=== PATIENT | female | born 1970 | race Caucasian/White ===

== ENCOUNTER 2016-11-07 18:57 | Inpatient (IN) | payer OTHER, MEDICAID ==
[~2016-11-07] VITALS: Ht 160 cm; Wt 54.7 kg
[2016-11-07 19:18] VITALS: BP 76/52; PULSE 66; RESP 15; O2SAT 60
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
[2016-11-07] MEDS ORDERED: 0.9% Sodium Chloride 1,000 ML IV ONE ×2 (19:28→22:00)
[2016-11-07] MEDS ORDERED: Piperacillin-Tazo 3.375 Gm Inj 3.375 GM in Dextrose 5% Minibag Plus 50 ML IV ONE (19:40)
--- NOTE | 2016-11-07 20:13 | DRSVH ---
PROCEDURE: X-RAY CHEST ONE VIEW, PORTABLE ([id number]) INDICATIONS: fever, hypotension TECHNIQUE: One view of the chest was acquired. COMPARISON: None. FINDINGS: Surgical changes and devices: Low anterior cervical fusion has been performed. Lungs and pleura: No pneumothorax. Moderate patchy airspace opacity at the right lung base. Small ri ght pleural effusion. Mediastinum: Mediastinal contours appear normal. Heart size is normal. Bones and chest wall: No suspicious bony lesions. Overlying soft tissues appear unremarkable. IMPRESSION: Right lung base pneumonia with small parapneumonic effusion. Follow up plain films of the chest are recommended to ensure resolution, and to exclude underlying or central malignancy. Dictated by: William Omer M.D. on 11/07/2016 at 20:11 Approved by: William Omer M.D. on 11/07/2016 at 20:12
[2016-11-07 21:05] LABS: BASOPHILS % (AUTO) 0.3 % (0-3); EOSINOPHILS % (AUTO) 0.5 % (0-5); MONOCYTES % (AUTO) 8.4 % (4-12); Mean Corpuscular Hemoglobin 28.5 pg (27.0-35.0); Mean Corpuscular Volume 85.6 fL (81-100); NEUTROPHILS % (AUTO) 49.2 % (40-74); Platelet Count 119 bil/L (150-400)
[2016-11-07 21:27] LABS: TROPONIN T 0.01 ug/L (0.0-0.011)
[2016-11-07 21:37] LABS: ERYTHROCYTE SEDIMENTATION RATE 34 mm/hr (0-32)
[2016-11-07 22:20] LABS: COLOR,URINE YELLOW (YELLOW)
[2016-11-07 22:21] LABS: APPEARANCE,URINE CLEAR (CLEAR,HAZY); ICTOTEST,URINE POSITIVE (Negative); OCCULT BLOOD,URINE NEGATIVE (NEGATIVE); PH,URINE 5.5 (5.0-8.0); UROBILINOGEN,URINE NORMAL (NORMAL); YEAST,URINE MANY (NONE SEEN)
[2016-11-07] MEDS ORDERED: Polyethylene Glycol (PEG) 17 Gm Powder PO PRN (23:55)
[2016-11-07] MEDS ORDERED: Alum-Mag Hydrox-Simeth 30 mL Suspension PO PRN (23:55)
[2016-11-08] VITALS (21 sets, daily range): BP systolic 68–158; BP diastolic 32–112; PULSE 66–92; RESP 14–26; O2SAT 92–96
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
[2016-11-08] MEDS ORDERED: HYDROmorphone 1 mg/mL Inj IVPUSH ONE (01:00)
[2016-11-08] MEDS ORDERED: 0.9% Sodium Chloride 1,000 ML IV ONE (01:10)
[2016-11-08] MEDS: Vancomycin Dose per Pharmacist XX SCH ×2 (01:10→08:30)
[2016-11-08] MEDS ORDERED: Vancomycin Inj 1,000 MG in IV Premix 1 EACH IV ONE (01:15)
[2016-11-08] MEDS: 0.9% Sodium Chloride 1,000 ML IV SCH ×2 (01:30→16:07)
[2016-11-08] MEDS ORDERED: BACL20TA PO ×3 (01:43→05:44)
[2016-11-08] MEDS ORDERED: OXYB10TA PO (01:43)
[2016-11-08] MEDS ORDERED: FLUO10CA20 PO (01:43)
[2016-11-08] MEDS ORDERED: ASPI325T32 PO ×2 (01:43→05:44)
[2016-11-08] MEDS ORDERED: DIAZ10TA3 PO ×2 (01:43→05:44)
[2016-11-08] MEDS ORDERED: HYDR-3740 PO ×2 (01:43→05:44)
[2016-11-08] MEDS ORDERED: SIMV40TA5 PO (01:43)
[2016-11-08] MEDS ORDERED: MIDO5TAB PO ×2 (01:43→05:44)
[2016-11-08] MEDS ORDERED: BUPR150T12 PO ×2 (01:43→05:44)
[2016-11-08] MEDS ORDERED: AMT50T PO ×2 (01:43→05:44)
[2016-11-08] MEDS ORDERED: Tolterodine ER 2 mg ER24 Capsule PO ONE (01:55)
[2016-11-08] MEDS: Heparin 5,000 Unit/mL Inj SUBQ SCH ×4 (02:30→23:03)
--- NOTE | 2016-11-08 03:59 | PCM.CONPHA ---
Subjective Date of Service: November 08, 2016 Requesting Provider: PAULO OAKLEY DO Fevers, malaise Reason for Pharmacy Consult: Vancomycin Dosing Objective Vital Signs Date Time Temp Pulse Resp B/P Pulse Ox O2 Delivery O2 Flow Rate FiO2 11/08/16 01:52 67 11/08/16 01:17 37.1 82 16 90/48 96 Nasal Cannula 4 11/08/16 00:48 36.7 66 16 74/48 94 Nasal Cannula 4.00 11/07/16 19:18 37.0 66 15 76/52 60 Room Air Intake and Output 11/06/16 11/07/16 11/08/16 00:00 00:00 00:00 Intake Total 2000 ml Balance 2000 ml Weight (Kilograms): 51.300 Height (Feet): 5 Height (Inches): 3.00 Test 11/07/16 20:55 11/07/16 21:38 White Blood Count 4.0th/mm3 (3.8-10.1) Red Blood Count 3.89mil/mm3 (3.90-5.20) Hemoglobin 11.1g/dL (12.0-15.6) Hematocrit 33.3% (35.0-46.0) Mean Corpuscular Volume 85.6fL (81-100) Mean Corpuscular Hemoglobin 28.5pg (27.0-35.0) Mean Corpuscular Hemoglobin Concent 33.3% (32.0-37.0) Red Cell Distribution Width 16.0% (12.3-15.4) Platelet Count 119bil/L (150-400) Neutrophils (%) (Auto) 49.2% (40-74) Lymphocytes (%) (Auto) 41.3% (14-46) Monocytes (%) (Auto) 8.4% (4-12) Eosinophils (%) (Auto) 0.5% (0-5) Basophils (%) (Auto) 0.3% (0-3) Erythrocyte Sedimentation Rate 34mm/hr (0-32) Sodium Level 124mEq/L (134-144) Potassium Level 4.4mEq/L (3.5-5.2) Chloride Level 89mEq/L (97-108) Carbon Dioxide Level 20mmol/L (18-29) Blood Urea Nitrogen 11mg/dL (6-24) Creatinine 0.73mg/dL (0.57-1.00) Estimat Glomerular Filtration Rate 122mL/min (>59) Glucose Level 89mg/dL (60-99) Lactic Acid Level 0.8mmol/L (0.4-2.0) Calcium Level 8.9mg/dL (8.5-10.1) Total Bilirubin 0.2mg/dL (0.0-1.2) Aspartate Amino Transf (AST/SGOT) 28U/L (0-50) Alanine Aminotransferase (ALT/SGPT) 17U/L (0-32) Alkaline Phosphatase 83U/L (25-150) Troponin T 0.010ug/L (0.0-0.011) Pro-B-Type Natriuretic Peptide 168.0pg/mL (0-249) Total Protein 6.6g/dL (6.4-8.4) Albumin 3.3g/dL (3.4-5.0) Lipase 19U/L (13-60) Procalcitonin 0.06ng/mL (0.00-0.08) Urine Color Yellow (YELLOW) Urine Appearance Clear (CLEAR,HAZY) Urine pH 5.5 (5.0-8.0) Urine Specific [place] 1.018 (1.003-1.035) Urine Protein Negativemg/dL (NEG,TRACE) Urine Glucose (UA) Negativemg/dL (NEGATIVE) Urine Ketones Negativemg/dL (NEGATIVE) Urine Occult Blood Negative (NEGATIVE) Urine Nitrite Negative (NEGATIVE) Urine Bilirubin Small (NEGATIVE) Urine Ictotest Positive (Negative) Urine Urobilinogen Normalmg/dL (NORMAL) Urine Leukocyte Esterase Large (NEGATIVE) Urine RBC 0-2/hpf (0-2) Urine WBC >50/hpf (0-5) Urine Epithelial Cells Few/hpf (NONE-MOD) Urine Crystals None seen (NONE SEEN) Urine Bacteria Few/hpf (NONE-FEW) Urine Hyaline Casts None/lpf (NONE) Urine Granular Casts None seen (NONE SEEN) Urine Waxy Casts None seen (NONE SEEN) Urine Red Blood Cell Casts None seen (NONE SEEN) Urine White Blood Cell Casts None seen (NONE SEEN) Urine Mucus None seen (None Seen) Urine Trichomonas None seen (NONE SEEN) Urine Yeast Many (NONE SEEN) Urine Culture Reflexed Indicated Assessment/Plan Assessment/Plan A: * Vancomycin dosing by pharmacy for 46 y/o woman with pneumonia * She is also being started on Zosyn * Estimated CrCl for this patient is about 77 mL/min (Cockcroft & Gault) * Estimated vancomycin half-life is 10 hours and estimated Vd is 36 liters P: * Give one vancomycin 1000 mg IV loading dose * Continue with vancomycin 750 mg IV every 12 hours * Target a vancomycin trough range of 15 - 20 mcg/mL * Drawing a trough level prior to the fourth dose Thank you. Pharmacy will continue to follow this patient. Giselle Shahid November 08, 2016 03:59
[2016-11-08] MEDS ORDERED: OXYB5TAB10 PO (05:44)
[2016-11-08] MEDS ORDERED: FLUO10TA PO (05:44)
[2016-11-08] MEDS ORDERED: SIMV20TA4 PO (05:44)
[2016-11-08] MEDS ORDERED: DOCU250C2 PO (05:44)
--- NOTE | 2016-11-08 05:47 | NUR ---
ADMIT Patient transfer from ER and was hypotensive with SBP 60-70s, Gave 500ml bolus NS, then repeat of 250ml NS. BP increased to 150s and patient reported pain 10/10 and was worried that her BP would continue to rise stating, "this is how I had a stroke." Dilaudid given with quick resolution of pain, however, BP returned to low 70s. Midodrine ordered and given, providing stabilization of BP in 90s which is patient norm. Patient began asking for pain medication and valium. Blood pressure at this time dipped back into the 60s, patient informed we would have to wait on pain medications until we can get her BP back into 90s. MD contacted and made aware of changes. Midodrine ordered for morning dose. Noted on skin check that patient had small open area on coccyx and redness to sacrum area. Q2h turns, heals and elbows floated on pillows. Care is ongoing.
--- NOTE | 2016-11-08 08:24 | DRSVH ---
PROCEDURE: X-RAY CHEST ONE VIEW, PORTABLE ([id number]) INDICATIONS: dyspnea TECHNIQUE: One view of the chest was acquired. COMPARISON: [facility], CT, CT ABD PELVIS W CON, 11/07/2016, 22:48. [facility], CR, XR CHEST 1VW (PORTABLE), 11/07/2016, 19:40. FINDINGS: Surgical changes and devices: Lower cervical spine fixation hardware. Lungs and pleura: Air space opacity as well as right lung base and small right pleural effusion redem onstrated. Left lung is clear. Mediastinum: Mediastinal contours appear normal. Heart size is normal. Bones and chest wall: No suspicious bony lesions. Overlying soft tissues appear unremarkable. IMPRESSION: Right basilar consolidation and trace effusion not significantly changed. Dictated by: Los Smith RRA Interpreted: Jil Gomes MD on 11/08/2016 at 8:21 Transcribed by: WILLIE on 11/08/2016 at 8:24 Approved by: Jil Gomes M.D. on 11/08/2016 at 10:30
[2016-11-08] MEDS ORDERED: buPROPion XL 150 mg ER24 Tablet PO SCH ×2 (08:30→20:30)
[2016-11-08] MEDS: HYDROcodone-APAP 10-325 mg PO PRN ×2 (08:33→16:03)
[2016-11-08 08:55] LABS: OSMOLALITY, URINE 282 mOs/kH2O (250-1200)
--- NOTE | 2016-11-08 08:56 | DRSVH ---
PROCEDURE: CT ABDOMEN AND PELVIS WITH CONTRAST ([id number]) INDICATIONS: 46 year-old woman with abdominal pain and pneumonia. TECHNIQUE: After the administration of intravenous contrast, 5 mm thick sections acquired from the diaphragm to the symphysis. 5 mm coronal and sagittal reformats were acquired. For radiation dose reduction, the following was used: automated exposure control, adjustment of mA and/or kV according to patient siz e. COMPARISON: None. FINDINGS: Image quality: Excellent. ABDOMEN: Lung bases: There is right basilar consolidation and atelectasis. Small right pleural effusion. Hear t size is normal. Solid organs: Liver is enlarged measuring 19.5 cm. The spleen are normal in size and enhancement. G allbladder is normal. Biliary system is non dilated. Pancreas enhances normally. No adrenal nodule s. Kidneys demonstrate normal size and enhancement, without hydronephrosis. Peritoneum and bowel: Bowel loops demonstrate normal wall thickness and caliber. There is a large a mount of stool in colon. No free fluid or air. Nodes and vessels: No retroperitoneal or mesenteric adenopathy by size criteria. Aorta and inferior vena cava are normal in size. Miscellaneous: No ventral hernias. PELVIS: Genitourinary: Bladder wall thickness is normal. Miscellaneous: No inguinal hernias or adenopathy. There is stranding in the right perianal region a nd buttock. Bones: No suspicious bony lesions. No vertebral body compression fractures. IMPRESSION: 1. Right basilar consolidation consistent with pneumonia. 2. Small right pleural effusion and bibasilar atelectasis. 3. Mild hepatomegaly. 4. Mild concentric thickening of bladder. Bladder is, however, partially contracted. Recommend clinic al correlation for cystitis. 5. Soft tissue stranding in the right perianal region and buttock. No significant discrepancy with the maintenance technician 2nd shift radiology preliminary report. Dictated by: Shanelle Gonzáles M.D. on 11/08/2016 at 8:50 Transcribed by: BRITTNEE on 11/08/2016 at 8:55 Approved by: Shanelle Gonzáles M.D. on 11/08/2016 at 12:08
[2016-11-08] MEDS: Piperacillin-Tazo 3.375 Gm Inj 3.375 GM in Dextrose 5% Minibag Plus 50 ML IV SCH ×2 (09:05→20:29)
[2016-11-08 10:32] LABS: BASOPHILS % (AUTO) 0 % (0-3); EOSINOPHILS % (AUTO) 0 % (0-5); MONOCYTES % (AUTO) 8.9 % (4-12); Mean Corpuscular Volume 86.9 fL (81-100); NEUTROPHILS % (AUTO) 74.9 % (40-74); Platelet Count 89 bil/L (150-400)
--- NOTE | 2016-11-08 11:15 | DRSVH ---
PROCEDURE: US CHEST/PLEURAL SONOGRAM INDICATIONS: pleural effusion COMPARISON: [facility], CT, CT ABD PELVIS W CON, 11/07/2016, 22:48. FINDINGS: Trace posterior, non-accessible right pleural effusion is present and there is moderate jose antonio ng consolidation noted. IMPRESSION: Trace right pleural effusion posteriorly which is not accessible for thoracentesis. Lung consolidation. Dictated by: [place] ALEX Interpreted: Jil Gomes MD on 11/08/2016 at 11:13 Transcribed by: WILLIE on 11/08/2016 at 11:15 Approved by: Jil Gomes M.D. on 11/09/2016 at 16:02
[2016-11-08] MEDS ORDERED: DOCU-41 PO (14:29)
[2016-11-08] MEDS ORDERED: SENN-133 PO (14:29)
--- NOTE | 2016-11-08 14:46 | NUR ---
Med Rec Pt unable to recall her medications. Obtained med lists from pt's pharmacy - [facility] in [place] and pt's physician, Mukesh Mccauley MD. Notified Hospitalist - R2 that Med Rec has been completed.
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
--- NOTE | 2016-11-08 16:03 | NUR ---
Wound Care Wound orders received, patient seen at bedside. 46 yo female with quadriplegia for greater than 25 years, admitted to [facility] for fever and constipation. Skin inspection reveals her left buttock is blanchable and red as is the spine of her sacrum, she currently has no pressure related skin issues. Patient has a tilt in space [employer] power chair and lives in [place]. No wound care issues at this time.
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
[2016-11-08] MEDS ORDERED: Vancomycin Inj 750 MG in 0.9% Sodium Chloride 250 ML IV SCH (17:00)
[2016-11-08] MEDS ORDERED: 0.9% Sodium Chloride 250 ML IV ONE ×3 (17:45→22:35)
--- NOTE | 2016-11-08 17:50 | NUR ---
Midodrine Withheld Pt's Midodrine at 1200 due to BP being Hypertensive. Pt's BP started trending down and around 1500 administered her noon dose after talking to MD about her most recent BP's. Pt's BP still low at this time, just paged and received orders to administer a 250 mls NS bolus. Will continue to monitor.
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
[2016-11-08] MEDS: buPROPion SR 150 mg ER12 Tablet PO SCH (18:03)
[2016-11-09] VITALS (10 sets, daily range): BP systolic 82–128; BP diastolic 40–73; PULSE 66–84; RESP 13–24; O2SAT 90–97
--- NOTE | 2016-11-09 01:49 | NUR ---
Hypotension/O2 Pt BP 70s/40s at start of shift, pt very dizzy when attempting to sit up to eat. Symptoms better when pt lying down flat. MD notified and ordered one time dose of 5mg midodrine. Pt's SBP up to 80s for a very short time but then back to 70s as before. O2 needs also up while pt slept. O2 turned up to 6L NC and later switched to oxymask as pt was observed to mouth breath while asleep. Sats now maintaining mid 90s on 5-6L oxymask, monitored continuously. Night resident notified when BP persisted in 70s/40s, NS 250 bolus ordered and both residents came to assess pt, second 250NS bolus ordered and one time 10mg dose of midodrine ordered as well. Pt placed in IMCU status. Tele SR 80s w/ PVCs, sputum sample sent. BP now 100s/60s Ongoing care. Addendum: 11/09/16 at 0643 by AUGUSTO DUQUE RN SBP maintaining in 90s
[2016-11-09 03:04] LABS: BASOPHILS % (AUTO) 0.3 % (0-3); EOSINOPHILS % (AUTO) 0.3 % (0-5); MONOCYTES % (AUTO) 7.3 % (4-12); Mean Corpuscular Hemoglobin 27.9 pg (27.0-35.0); Mean Corpuscular Volume 86.9 fL (81-100); NEUTROPHILS % (AUTO) 59.8 % (40-74); Platelet Count 110 bil/L (150-400)
[2016-11-09] MEDS: Ondansetron 2 mg/mL 2 mL Inj IVPUSH PRN ×2 (06:10→20:35)
[2016-11-09] MEDS: HYDROcodone-APAP 10-325 mg PO PRN ×3 (06:52→21:01)
--- NOTE | 2016-11-09 07:53 | PROG NOTE ---
[address] [address] PROGRESS NOTE PATIENT: JORDY IBRAHIM : 1970 MR#: [id number] ADMIT: 11/07/2016 JOB ID: [id number] DATE: 11/09/2016 REASON FOR FOLLOWUP: Adenoviral pneumonia with possible attendant bacterial or fungal infection. INTERVAL HISTORY: Recall this is a 46-year-old quadriplegic who was admitted on this occasion with increasing shortness of breath, respiratory crackles, and fever. She tells me today that both of her young caregivers, who are in their 20s, have had a very significant respiratory tract illness which preceded hers. She believes, as to why, that she acquired her current infection from them. Today she continues to have a scratchy throat, but no additional fevers or chills. She has thick respiratory secretions which she cannot bring up due to her quadriplegic state. She has some nausea, but no vomiting. PHYSICAL EXAMINATION: Reveals an afebrile woman temp 37.8, pulse 84, respiratory rate 20, blood pressure 100/60. She is saturating well, but having to use face mask oxygen. Mental status completely clear. Eyes without conjunctivitis. Mild pharyngeal erythema without exudate. Lung with some scattered upper airway sounds bilaterally. Abdomen is soft and nontender of course as she has no sensation below her neck. No new skin rashes noted. Suprapubic catheter appears uninfected. LABORATORIES: Include a white count of 3700 today, 110,000 platelets. Creatinine 0.28. LFTs are normal. Procalcitonin zero x2. Urinalysis had greater than 50 white cells, but the culture is negative at 36 hours. Respiratory viral PCR positive for adenovirus. Blood cultures negative. MRSA virus negative. Chest x-ray showed right-sided infiltrate. This was confirmed by a chest ultrasound. IMPRESSION: This quadriplegic patient admitted with fever and shortness of breath. She clearly has had adenoviral pneumonia, and I suspect that is all she has, there had been concerns because she had pyuria with yeast seen on the stain of urine, but cultures of the urine so far negative, and I have asked the lab to hold her urine for 72 hours to make sure there is no yeast growing. This may turn operator to be a red spears in terms of seeing the yeast on urinalysis. Whether or not she has any bacterial superinfection is unclear, but I doubt it. Procalcitonins x2 are zero. The patient looks nontoxic and has a normal white blood count. RECOMMENDATIONS: 1. Will go ahead and continue Zosyn and fluconazole until tomorrow. 2. I have asked the lab to hold her urine culture an additional day. 3. If we see no evidence of fungal urinary tract infection or bacterial superinfection on top of the adenoviral pneumonia tomorrow, will probably go ahead and discontinue all antibiotics at that time. MTDD
[2016-11-09] MEDS: Polyethylene Glycol (PEG) 17 Gm Powder PO SCH (08:30)
[2016-11-09] MEDS: Heparin 5,000 Unit/mL Inj SUBQ SCH ×2 (08:30→17:21)
[2016-11-09] MEDS: Piperacillin-Tazo 3.375 Gm Inj 3.375 GM in Dextrose 5% Minibag Plus 50 ML IV SCH ×2 (09:03→20:39)
[2016-11-09] MEDS: buPROPion SR 150 mg ER12 Tablet PO SCH ×2 (09:03→17:20)
[2016-11-09] MEDS: 0.9% Sodium Chloride 1,000 ML IV SCH (10:50)
--- NOTE | 2016-11-09 15:18 | NUR ---
Hypotension Pt's BP has been in the 80's-90's/40's-50's for most of the day. MD's aware and after discussion plan is to keep giving the Mididrone and to page MD if BP's systolic drops below 80's. Q1 hour BP checks.
[2016-11-09] MEDS ORDERED: Vancomycin Serum Trough XX ONE (16:30)
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
[2016-11-10] VITALS (15 sets, daily range): BP systolic 73–115; BP diastolic 37–59; PULSE 62–69; RESP 14–21; O2SAT 88–96
[2016-11-10] MEDS: Heparin 5,000 Unit/mL Inj SUBQ SCH ×4 (00:28→23:51)
[2016-11-10 03:25] LABS: BASOPHILS % (AUTO) 0.2 % (0-3); EOSINOPHILS % (AUTO) 0 % (0-5); MONOCYTES % (AUTO) 7.9 % (4-12); Mean Corpuscular Hemoglobin 28.1 pg (27.0-35.0); Mean Corpuscular Volume 85.7 fL (81-100); NEUTROPHILS % (AUTO) 65.7 % (40-74); Platelet Count 124 bil/L (150-400)
--- NOTE | 2016-11-10 04:28 | NUR ---
P: 02 desaturation I: increase 5L oxymask, add 6L NC, awaken pt to use flutter valve and incentive spirometer, repositioning E: A/O. Moves BUEs. Flaccid BLEs. Numb from chest down to feet. Eating dinner at 2200. Feeds self. States has been having food "get stuck" and hurts chest. Per pt this has been happening for past year. Informed Dr. Rucker. c/o generalize aching, spasms, 11/26. [place] along w/ HS bacoflen, elavil, and plus more HS meds. 02 saturation decreasing down to 85% on 5L oxymask while sleeping. Reposition and waking pt to use flutter valve, incentive spirometer, and take in fluids. Helpful then pt back to sleep w/ 02 saturations trending down to mid 80s again. Increasing oxymask to 15L, sats in the high 80s. Adding on 6L NC to keep sats > 92%. Currently 2L oxymask and 6L NC = 93% (asleep). Tele SR. SBP 80-low 100s, DBP 40-50s. Call MD if SBP < 70 per shift report. SP cath draining leatha cloudy urine.
[2016-11-10] MEDS: buPROPion SR 150 mg ER12 Tablet PO SCH ×2 (08:00→16:46)
[2016-11-10] MEDS: Polyethylene Glycol (PEG) 17 Gm Powder PO SCH (08:30)
--- NOTE | 2016-11-10 08:51 | PROG NOTE ---
[address] [address] PROGRESS NOTE PATIENT: JORDY IBRAHIM : 1970 MR#: [id number] ADMIT: 11/07/2016 JOB ID: [id number] DATE: 11/10/2016 INFECTIOUS DISEASE FOLLOW UP NOTE: REASON FOR FOLLOWUP: Adenoviral pneumonia with Amalia urinary tract infection in a quadriplegic. INTERVAL HISTORY: Overnight, the patient said she is more short of breath than she has been. She reports that she feels like she cannot get air into the bottom of her lungs, especially on the right side. She also notes that she cannot cough anything up and is trying to do her so called "self Heimlich maneuver" to get some sputum up but that has not been successful. She denies fever but clearly is cold this morning with a lot of covers in place trying to keep warm. No GI symptoms and no other new symptoms to report. PHYSICAL EXAMINATION: Reveals a woman who is heavily laden with blankets and looks a bit chilled. Temperature 36.4. She has been afebrile since the for two days. Pulse 64, respiratory rate 14, blood pressure 85/50 which is normal for her by her report. She is saturating well on just 2 L by Oxy Mask, which is less than was recently as last night. She does not appear to be in extreme discomfort as she is fully conversational and does not appear dyspneic. Oral cavity negative. Lungs with reasonable air flow bilaterally, a few crackles or rhonchi at the right base. The abdomen without any change. Soft and without apparent mass or abnormalities. She does have a suprapubic tube in place. No skin rash. Remainder of the examination is unchanged. LABORATORIES: Include a white count which is consistently right around 4000 and is today 4400. Platelets 124. Normal differential on the white count. Creatinine less than 0.3. LFTs normal. Procalcitonin now less than or equal to 0.06 three times including this morning. Urinalysis had greater than 50 white cells, and the culture of that urine did finally grow on the third day Amalia albicans. Remainder of her cultures are negative and other micro studies, urine Legionella and pneumococcal antigens are negative. Blood cultures are negative. Flu screen negative. MRSA screen negative and the respiratory viral multiplex PCR was positive for adenovirus. IMAGING: Ultrasound of the chest two days ago showed trace right pleural effusion. The chest x-ray, also done two days ago, showed right basilar consolidation with trace pleural effusion. IMPRESSION: This patient was admitted primarily for fever and shortness of breath. This is likely all secondary to adenoviral pneumonia. The patient has no leukocytosis, no left shift and three procalcitonins which are functionally 0. All of this argues strongly against a bacterial etiology as does the negative cultures and urine antigens. Whether or not she has a fungal urinary tract infection is difficult to tell. We do have pyuria and some yeast in her urine in a patient who cannot and will not have symptoms because of her quadriplegia. Amalia colonization of suprapubic or chronic indwelling [place] is very common, but in this case, it may be worth a short course of therapy. RECOMMENDATIONS: 1. Will go ahead and discontinue the Zosyn as we have no evidence of bacterial pneumonia. 2. I would continue fluconazole 200 mg a day for about 10 days. 3. ID will go ahead and sign off at this time. Please do not hesitate to call if you have additional questions or issues regarding this or any other patient.
[2016-11-10] MEDS: HYDROcodone-APAP 10-325 mg PO PRN ×2 (10:11→20:57)
[2016-11-10] MEDS ORDERED: Potassium Chloride 20 mEq SR Tablet PO ONE (11:25)
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
--- NOTE | 2016-11-10 13:52 | DRSVH ---
PROCEDURE: X-RAY CHEST ONE VIEW, PORTABLE ([id number]) INDICATIONS: PNEUMONIA TECHNIQUE: One view of the chest was acquired. COMPARISON: [facility], CT, CT ABD PELVIS W CON, 11/07/2016, 22:48. [facility], CR, XR CHEST 1VW (PORTABLE), 11/07/2016, 19:40. [facility], US, US CHEST PLEURAL, 10/18, 8:56. [facility], CR, XR CHEST 1VW (PORTABLE), 11/08/2016, 4:13. FINDINGS: Surgical changes and devices: Lower cervical spine fixation hardware.. Lungs and pleura: Small right basal pleural effusion and persistent consolidation is present. Left l fareed is clear. No pneumothorax Mediastinum: Mediastinal contours appear normal. Heart size is normal. Bones and chest wall: No suspicious bony lesions. Overlying soft tissues appear unremarkable. IMPRESSION: 1. Persistent small effusion which appears to have slightly increased in size from prior examination and may be loculated. Developing empyema cannot be excluded. 2. 3. Persistent consolidation involving the right lower lobe. Dictated by: Los Smith RRA Interpreted: Jordana Conner MD on 11/10/2016 at 13:47 Transcribed by: SUGEY on 11/10/2016 at 13:52 Approved by: Jordana Conner MD, PhD on 11/10/2016 at 15:24
--- NOTE | 2016-11-10 14:34 | NUR ---
Evaluation completed. Please go to "Notes" then click on "Assessments and Notes" (bottom left corner of screen). Then select appropriate discipline tab on top of screen.
--- NOTE | 2016-11-10 16:48 | NUR ---
Bowel Regimen Offered to do bowel help and the pt stated she did not feel constipated, that she had not ate much and would like to wait till tomorrow to get back onto her routine of MON, WED, FRI. Asked her to inform me if she changed her mind
[2016-11-10] MEDS ORDERED: 0.9% Sodium Chloride 250 ML ONE ×2 (18:32→23:40)
[2016-11-10] MEDS ORDERED: 0.9% Sodium Chloride 250 ML IV ONE (23:40)
[2016-11-11] VITALS (10 sets, daily range): BP systolic 83–120; BP diastolic 55–78; PULSE 65–76; RESP 16–20; O2SAT 90–97
--- NOTE | 2016-11-11 03:44 | NUR ---
BP/LOC/O2 Pt BP around midnight trended down to high 60s-low 70s/low 40s. notified and ordered NS 250 bolus x3, SBP came up after this to 80s-90s and has maintained. When pt woken to be reassessed pt was difficult to wake, was able to follow commands, bilateral upper extremities moving equally, but had trouble answering questions about month and sometimes got year/city wrong. Pt able to be reoriented but would say odd things then get frustrated saying "I can't even speak." Both night residents danny and MD Rucker came into room to assess pt. No new orders given but home meds were reviewed. Pt O2 increased to 10 L oxymask d/t desats into mid 80s, sats maintained about 93% overnight on 10L. Pt also noted to have more accessory muscle use during this time. MD delgado. Addendum: 11/11/16 at 0603 by AUGUSTO DUQUE RN This morning, SBP 100s and O2 titrated back down to 4L oxymask, sats 94% while pt sleeps
[2016-11-11 04:20] LABS: Mean Corpuscular Volume 85.4 fL (81-100); Platelet Count 146 bil/L (150-400)
[2016-11-11 05:04] LABS: BASOPHILS % (AUTO) 0.8 % (0-3); EOSINOPHILS % (AUTO) 0.3 % (0-5); MONOCYTES % (AUTO) 8.1 % (4-12); NEUTROPHILS % (AUTO) 47.7 % (40-74)
[2016-11-11] MEDS: Polyethylene Glycol (PEG) 17 Gm Powder PO SCH (08:30)
[2016-11-11] MEDS: buPROPion SR 150 mg ER12 Tablet PO SCH ×2 (10:11→16:44)
[2016-11-11] MEDS: Heparin 5,000 Unit/mL Inj SUBQ SCH ×2 (10:13→16:43)
[2016-11-11] MEDS: HYDROcodone-APAP 10-325 mg PO PRN ×3 (10:33→21:23)
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
--- NOTE | 2016-11-11 13:46 | NUR ---
NUTRITION ASSESSMENT: ASSESS: Pt is a 46yo F admitted with pneumonia and sepsis. She was evaluated by ST yesterday and placed on dysphagia mechanical diet with thin liquids. Pts PO intake has not been recorded well over the last 4 days with only 2 meals recorded. PO is bites-50%. Pt has not had a BM since admit. PMHX: Quadriplegic, Blood clot, pneumothorax, CVA LABS: Reviewed. Bun 5, clinical project coordinator <.3, Glu 100, Ca 8.3, AST 84, ALT 56, Alb 2.6 MEDS: Reviewed. Colace, Zofran, senna GI: 0 BM SKIN: small open area on coccyx. No PU per WC CURRENT WTS: 57.3kg, BMI 22.4kg/m2 DIET: Dysphagia Mech, PO 50% EST. NEEDS: Quadriplegic -10% Kcals: 1290-1550kcal/day (25-30kcal/kg) Pro: 65-75g/day (1.2-1.5g/kg) NUTRITION DIAGNOSIS: 1.) Inadequate oral intake related to chew/swallow difficulty as evidence by pt reporting inability to tolerate general texture foods that she had been receiving. NUTRITION INTERVENTION: 1.) Continue diet per ST. Will monitor for tolerance 2.) Will add ensure on L and D trays to help supplement PO intake MONITOR / EVAL: PO, ST, diet tolerance, wt, GI, labs, POC, nutrition status. Will continue to monitor per moderate nutrition risk guidelines.
--- NOTE | 2016-11-11 13:50 | DRSVH ---
PROCEDURE: X-RAY BARIUM SWALLOW ESOPHAGUS ([id number]) INDICATIONS: sensation of getting food stuck COMPARISON: None. FINDINGS: Patient was able swallow barium without difficulty. No laryngeal penetration or tracheobr onchial aspiration. Course of the esophagus is tortuous and patulous and there is a standing column of barium noted throughout the examination. No significant stricture, ulcer, mass or diverticulum is present. A 13 mm barium tablet was given which didn't traverse the GE junction. The attending physi mauricio was personally present in the room during the examination. IMPRESSION: Severe esophageal dysmotility with patulous appearance of the esophagus and no significan t strictures seen. Differential considerations would include early achalasia, scleroderma, chagas di sease(if [place] [facility] [place] as well as other nonspecific esophageal motility disorders. Dictated by: Los ALEX Interpreted: Nick Au MD on 11/11/2016 at 13:44 Transcribed by: MARGARITA on 11/11/2016 at 13:49 Approved by: Nick Au M.D. on 11/11/2016 at 14:16
--- NOTE | 2016-11-11 14:16 | NUR ---
Speech Evaluation Pt swallow was evaluated with barium swallow today. Speech recommendation is to crush pt medications and give in applesauce. Pt is refusing medications in this way as she states "they make me gag". A consensus was reached with the agreement to cut medications into quarters and give with applesauce. Pt's diet was also downgraded to full liquid with some "naturally" pureed foods ok such as mashed potatoes with gravy, applesauce, pudding and yogurts. Pt states that she is agreeable to these dietary changes.
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
[2016-11-11] MEDS: Pantoprazole 4 mg/mL 10 mL Inj IVPUSH SCH (16:43)
--- NOTE | 2016-11-11 17:17 | NUR ---
Social Work: Continued Discharge Planning D: Pt discussed in am rounds. Pt is not medically stable for discharge at this time and was found to be delirious overnight. No Anticipated discharge timeframe provided. METAL LATHER attempted to contact pt's NOK to discuss discharge plan and assess for unmet needs. METAL LATHER left message for pt's NOK requesting return phone call to discuss pt's care at home. A: Pt who is a quadriplegic and w/c bound at baseline. P: Anticipate pt to discharge back home with her daughters; METAL LATHER to continue to attempt contact with pt's daughters to confirm discharge plan. CARLOS Bañuelos
[2016-11-11] MEDS: Ondansetron 2 mg/mL 2 mL Inj IVPUSH PRN (20:51)
[2016-11-12] VITALS (7 sets, daily range): BP systolic 94–113; BP diastolic 48–91; PULSE 64–75; RESP 16–22; O2SAT 88–95
[2016-11-12] MEDS: Heparin 5,000 Unit/mL Inj SUBQ SCH ×3 (00:36→18:01)
--- NOTE | 2016-11-12 02:15 | NUR ---
O2 / DESAT Patient tolerating 1.5LPM via NC after clearing thick secretions (swallowed). Spo2 87% at HS. O2 increased to 4LPM, sustained low 90's. CTM for changes. Addendum: 11/12/16 at 0432 by RUBÉN ALAS RN 0430: repositioned, cpox applied. continues w/ o2 4L NC. sats 95%.
[2016-11-12 03:25] LABS: BASOPHILS % (AUTO) 0.7 % (0-3); EOSINOPHILS % (AUTO) 0.9 % (0-5); MONOCYTES % (AUTO) 12.7 % (4-12); Mean Corpuscular Hemoglobin 28.2 pg (27.0-35.0); NEUTROPHILS % (AUTO) 45.2 % (40-74); Platelet Count 205 bil/L (150-400)
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
[2016-11-12] MEDS: buPROPion SR 150 mg ER12 Tablet PO SCH (08:00)
[2016-11-12] MEDS: Polyethylene Glycol (PEG) 17 Gm Powder PO SCH (08:30)
[2016-11-12] MEDS: Pantoprazole 4 mg/mL 10 mL Inj IVPUSH SCH (09:05)
[2016-11-12] MEDS: HYDROcodone-APAP 10-325 mg PO PRN ×3 (09:06→20:54)
[2016-11-12] MEDS: 0.9% Sodium Chloride 1,000 ML IV SCH ×2 (09:15→22:50)
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
[2016-11-12] MEDS ORDERED: Botulinum Toxin Type-A 100 unit Inj IM ONE (10:45)
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
[2016-11-12] MEDS ORDERED: fentaNYL-PF 50 mCg/mL 2 mL Inj ONE (17:37)
[2016-11-12] MEDS ORDERED: Propofol 10,000 mCg/mL 20 mL Inj ONE (17:37)
--- NOTE | 2016-11-12 18:32 | NUR ---
Hypotension/pain/spasm Pt is slightly hypotensive this morning at 95/59. Fluids increased to 80ml/hr for NPO status. Next BP was WNL. Pt requested PRN Vicodin this AM for pain, upon reassessment she requested PRN Valium. She states that she has muscle spasm in her neck and the Valium works better on that pain. Pt was sleeping when reassessed.
[2016-11-12] MEDS: Ondansetron 2 mg/mL 2 mL Inj IVPUSH PRN (21:10)
[2016-11-13] VITALS (8 sets, daily range): BP systolic 85–143; BP diastolic 49–99; PULSE 61–75; RESP 14–22; O2SAT 94–97
[2016-11-13] MEDS: Heparin 5,000 Unit/mL Inj SUBQ SCH ×3 (00:47→17:15)
[2016-11-13 03:09] LABS: BASOPHILS % (AUTO) 0.5 % (0-3); EOSINOPHILS % (AUTO) 1.1 % (0-5); MONOCYTES % (AUTO) 13.6 % (4-12); Mean Corpuscular Hemoglobin 27.8 pg (27.0-35.0); NEUTROPHILS % (AUTO) 34.7 % (40-74)
[2016-11-13 03:23] LABS: Platelet Count 268 bil/L (150-400)
--- NOTE | 2016-11-13 06:03 | NUR ---
Pain/NPO Pt c/o pain 8/10 x1 this shift. Administered 1tab norco and effective. Pt rated pain 4/10 and no further complaints. Pt has been NPO since 0000 for EDG today. VSS and Pt is not on Tele .
[2016-11-13] MEDS ORDERED: Lactated Ringer's 1,000 ML IV ONE (07:51)
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
[2016-11-13] MEDS: Pantoprazole 4 mg/mL 10 mL Inj IVPUSH SCH (09:23)
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
[2016-11-13] MEDS: 0.9% Sodium Chloride 1,000 ML IV SCH ×3 (11:52→21:01)
--- NOTE | 2016-11-13 11:58 | PCM.ANEP1 ---
Post Anesthesia PACU Phase 1 Assessment Vital Signs Vital Signs Date Time Temp Pulse Resp B/P Pulse Ox O2 Delivery O2 Flow Rate FiO2 11/13/16 10:22 36.7 72 16 139/77 97 Nasal Cannula 4 11/13/16 09:08 36.6 75 18 143/99 94 Nasal Cannula 4.00 11/13/16 04:02 36.4 72 22 111/68 94 Nasal Cannula 4.00 Anesthetic Administered: GA Level of Alertness: Awake, talking ADAMS's with Equal Strength: No Pain: No Nausea or Vomiting: No CV Function & Hydration Stable: Yes Airway Device: Oxygen Delivery: Room Air Lungs: Normal Air Movement PACU Phase 2 Assessment Complications: No Follow up Care: No Patient Instructions Provided: N/A Osman Mayes MD November 13, 2016 11:58
[2016-11-13] MEDS ORDERED: Lactated Ringer's 1,000 ML IV SCH (11:59)
[2016-11-13] MEDS: Polyethylene Glycol (PEG) 17 Gm Powder PO SCH ×2 (13:30→13:46)
[2016-11-13] MEDS: FLUoxetine 4 mg/mL 118 mL Solution PO SCH (13:30)
[2016-11-13] MEDS: HYDROcodone-APAP 10-325 mg PO PRN ×2 (13:33→21:08)
--- NOTE | 2016-11-13 15:58 | NUR ---
Transfer to/from endoscopy Pt. transferred via bed to endoscopy around 1030. Back to room around 1250 in stable condition. oxygen saturations in mid 90s on 4 L NC with humidity. alert and talking. Pt. was able to eat lunch independently using specialized utensils, and morning medications administered at this time, due to earlier NPO status.
--- NOTE | 2016-11-13 16:56 | ENDO ---
[address] [address] ENDOSCOPY PROCEDURE PATIENT: JORDY IBRAHIM : 1970 MR#: [id number] ADMIT: 11/07/2016 JOB ID: [id number] DATE OF SERVICE: 11/13/2016 OPERATION: Esophagogastroduodenoscopy with biopsy. PREOPERATIVE DIAGNOSIS(ES): Dysphagia. POSTOPERATIVE DIAGNOSIS(ES): 1. Mild nonerosive gastritis status post biopsy. 2. There was peristalsis seen throughout the entire esophagus, status post biopsy of mid and distal esophagus. ANESTHESIA: Monitored anesthesia care. COMPLICATIONS: None. BLOOD LOSS: Minimal. DESCRIPTION OF PROCEDURE: After risks and benefits were explained to the patient, informed consent was obtained. After anesthesia administered, upper endoscope was then inserted into the mouth, and intubated through the esophagus and stomach, second portion of duodenum mucosa carefully examined. After procedure was done, the scope was withdrawn and procedure terminated. FINDINGS: Upon inspection of the esophagus, there were no masses, ulcers, lesions or strictures noted. There was peristalsis that was seen throughout the entire esophagus. Z-line located at 40 cm from incisors. Upon entering the stomach, there was a mild nonerosive gastritis seen in the antrum. Retroflexion was normal. No masses ir ulcers were seen. Duodenal bulb, first and second portion. biopsies taken at the antrum, body, mid and distal esophagus. IMPRESSIONS: 1. Mild nonerosive gastritis. 2. There was peristalsis that was seen throughout the entire esophagus status post biopsy. RECOMMENDATIONS: 1. Await pathology results. 2. Start diet per Speech and Swallow team, a dysphagia diet. 3. Given the fact the patient can tolerate mashed potatoes, okay to discharge home from a GI standpoint. 4. Follow up with GI clinic as an outpatient. 5. Consider outpatient esophageal manometry. 6. We will sign off. MTDD
--- NOTE | 2016-11-13 17:23 | NUR ---
Social Work: Continued Discharge Planning D: EMR reviewed. Pt is on day 6 of hospitalization for pneumonia with sepsis per H&P. Pt is not medically stable at this time, pt to receive EGD today. Pt is no longer delirious. CIS COORDINATOR attempted to contact pt's NOK to discuss discharge plan and assess for unmet needs, left message requesting return call. Pt confirms that plan is to return home with daughters to continue care. SW will continue to attempt contact with pt's daughters. SW will continue to follow. A: Pt who is a quadriplegic and w/c bound at baseline. P: Anticipate pt to discharge back home with her daughters; CIS COORDINATOR to continue to attempt contact with pt's daughters to confirm discharge plan. Maria Dolores Zabala MSW
[2016-11-14] VITALS (8 sets, daily range): BP systolic 90–135; BP diastolic 58–79; PULSE 63–75; RESP 20–22; O2SAT 88–96
[2016-11-14] MEDS: Heparin 5,000 Unit/mL Inj SUBQ SCH ×3 (01:01→16:30)
[2016-11-14 04:28] LABS: Mean Corpuscular Hemoglobin 27.2 pg (27.0-35.0); Mean Corpuscular Volume 89.3 fL (81-100)
--- NOTE | 2016-11-14 04:52 | NUR ---
Oxygenation: P: Pt saturating at 88% while sleeping on 4 L of humidified O2. I: Increased oxygen to 6 L while sleeping. E: Pt's oxygen saturations are 92-95% on the 6L. Will cont. to monitor. Attempt weaning when pt is awake.
--- NOTE | 2016-11-14 05:29 | NUR ---
Turning: Attempted turning pt to her right side, however, the pt became upset and wanted to be "pulled up" by her arms. Pt kept repeating this and struggled to sit her self up. Pt finally became comfortable after she was turned back completely to her left side. Pt sleeping quietly at this time.
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
[2016-11-14] MEDS: HYDROcodone-APAP 10-325 mg PO PRN ×2 (09:37→16:40)
[2016-11-14] MEDS: Pantoprazole 4 mg/mL 10 mL Inj IVPUSH SCH (09:42)
[2016-11-14] MEDS: FLUoxetine 4 mg/mL 118 mL Solution PO SCH (10:31)
--- NOTE | 2016-11-14 10:50 | PCM.DIMED ---
Danielle Baker 11/14/16 1050: Discharge Instructions Date of Service November 14, 2016 Dates of Hospitalization November 07, 2016 at 21:11 Discharge Diagnosis Discharge Diagnosis You had a respiratory infection caused by adenovirus. You also had a bladder yeast infection. Diet Discharge Diet: Other (see recommendations by speech therapy below) Activity Discharge Activity: Limited until seen by PCP Patient Instructions Patient Instructions Continue with at home speech therapy twice per week to help with assessing swallowing. For now, speech therapy recommends a full liquid diet with thin liquids and small bites. Please cut your pills into 1/4s and take them in applesauce, mash potatoes, or pudding. Stop eating or drinking if you are coughing, continue small bites/sips, sit upright, and alternate liquids and solids. Nutrition recommended adding Ensure supplements for lunch and dinner. Start a restorative rehab aide for baths at home. Continue your routine home nursing. Start occupational therapy twice per week for 4 weeks to teach home exercises, safe transfers, energy conservation methods, and to assess for the need and teach safe use of assistive devices. Start using oxygen at home because your oxygen dropped to 88% at rest today. I changed fluoxetine to a liquid solution, but continue 10 mg once daily in the morning; bupropion to 75 mg short acting tablets but continue 150 mg twice per day; and aspirin to chewable pills so that they are easier to swallow. Continue fluconazole 200 mg once daily for 4 more days. Please follow up with your primary care provider within 1 week to review your hospital stay and follow up on your breathing and bladder infection. Also, discuss with your primary care provider about doing a sleep study to look for sleep apnea. You may also need an esophageal manometry test to further look at how your esophagus works while you swallow. Follow up with a drag down, the digestive tract specialist, to review your biopsy results and to discuss your swallowing in 2 weeks. Follow up with a life assurance representative, lung specialist, as previously scheduled when you are better from this current respiratory infection. Keep up the good work with no longer smoking! Follow-up Provider: Bennett Mayorga MD Follow-up with PCP in: 1 week Provider: Teodoro Merchant MD Follow-up in: 2 weeks Gregory Dong MD 11/14/16 4984: Discharge Instructions Attending's Statement The patient was seen and examined together with Dr. Milton on 11/14/2016 and I agree with the history, exam and plan as outlined in the note above. . Danielle Baker DO November 14, 2016 10:50 Gregory Dong MD November 14, 2016 16:34
[2016-11-14] MEDS ORDERED: FLUO20SO PO (11:05)
[2016-11-14] MEDS ORDERED: ASPI81TA3 PO (11:05)
[2016-11-14] MEDS ORDERED: Bupropion Hcl PO (11:05)
[2016-11-14] MEDS ORDERED: DIF100A PO (11:05)
[2016-11-14] MEDS: 0.9% Sodium Chloride 1,000 ML IV SCH (11:15)
--- NOTE | 2016-11-14 16:09 | NUR ---
Social Work Note: Discharge Data& Assessment: EMR reviewed. Per pt is medically improved and ready to discharge home via POV. Harper Wallace is a 46 year old female admitted on 11/07/2016 for pneumonia with sepsis. Per pt is medically improved and ready for discharge. SW received order to arrange Home Health OT, Bath Aid and Speech Therapy. Home Health List provided to Pt. Pt lives in [place] and the only agency that services that area is [facility]. Pt agreeable to this referral. TRENT spoke with Shani from [facility] who confirmed they will be able to accept pt as soon as this Monday11/16/2016. TRENT faxed F2F and facesheet, Shani from [facility] confirmed she received the F2F, original placed in pt chart. TRENT spoke with pt, pt ex and other family at bedside as well as pt VIKASH caregiver Lilliana to confirm discharge plan and assess for any unmet needs. Pt, pt family and pt caregiver denies any other needs. Copy of DC paperwork faxed to pt VIKASH supportive employment case manager. Pt being transported home privately. No other discharge needs identified. Plan: Per pt is medically ready to discharge home via POV with [facility] OT, ST and MUSIC HISTORIAN. Pt, pt family and pt caregiver denies any other needs. No other discharge needs identified. CARLOS Munguia
--- NOTE | 2016-11-14 19:15 | NUR ---
Discharge Pt discharged to home with transportation by her caregiver who is her ex-. Pt's IV's dc'd intact. Discharge instructions, follow up appointments and new medications were reviewed. All questions were answered and pt voiced understanding. Pt's belongings were gathered for transport and pt was escorted off unit by RN.
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
--- NOTE | 2016-11-16 16:50 | PATH ---
SURGICAL PATHOLOGY Attending Physician:Teodoro Merchant MD CASE STATUS: Signed Out PATIENT NAME: JORDY IBRAHIM PID: [id number] : 1970 DATE COLLECTED:11/12/2016 00:00 SPECIMEN: 1: Esophagus, Biopsy 2: Esophagus, Biopsy 3: Stomach, Antrum, Biopsy 4: Esophagus, Biopsy CLINICAL HISTORY: 1. DISTAL ESOPHAGUS BIOPSY 2. MID ESOPHAGUS BIOPSY 3. ANTRUM BIOPSY 4. GASTRIC BODY ESOPHAGUS FINAL DIAGNOSIS: 1. Distal Esophagus Biopsy: Portions of squamocolumnar junctional mucosa with specialized intestinal metaplasia, consistent with Zamorano's esophagus, in the appropriate clinical context. Negative for dysplasia and malignancy. 2. Mid Esophagus, Biopsy: Portions of squamous epithelium with no diagnostic abnormality. Increased eosinophils are not identified. Negative for dysplasia and malignancy. 3. Antrum Biopsy: Portions of gastric antral mucosa with features of reactive gastropathy. Negative for H. pylori organisms by H&E stain. Negative for intestinal metaplasia, dysplasia, and malignancy. 4. Gastric Body Esophagus, Biopsy: Portions of gastric body-type mucosa with no diagnostic abnormality. No definite H. pylori organisms identified by H&E stain. Negative for intestinal metaplasia, dysplasia, and malignancy. ICD10: K29.7 GROSS DESCRIPTION: The specimen is received in four formalin filled containers labeled with the patient's name. 1). The specimen is sublabeled "distal esophagus" and consists of 2 portions of tissue which aggregate to 0.3 x 0.3 x 0.2 CM. The specimen is entirely submitted in cassette 1A. 2). The specimen is sublabeled "midesophagus" and consists of 3 tiny portions of tissue which aggregate to 0.2 x 0.2 x 0.2 CM. The specimen is entirely submitted in cassette 2A. 3). The specimen is sublabeled "antrum" and consists of 2 portions of tissue which aggregate to 0.3 x 0.3 x 0.2 CM. The specimen is entirely submitted in cassette 3A. 4). The specimen is sublabeled "gastric body esophagus" and consists of a 0.3 x 0.2 x 0.2 CM portion of tissue which is entirely submitted in cassette 4A. 11/15/2016 [facility] ICD-9 CODES: CPT CODES: 1: 30957 2: 66523 3: 38302 4: 25315 Electronically Signed Out Carolina Priest MD [facility] [address], [place] [address] Technical component performed at [facility], [address], [place], [address]
== END 2016-11-14 17:38 | disposition home health service (06) | DRG 137 ==
LOC: SED 18:57 → PCC 21:11
PROVIDERS: ADMIT Hospitalist; ATTEND Hospitalist
PROC: 0DB68ZX Excision of Stomach, Via Natural or Artificial Opening Endoscopic, Diagnostic (ICD-10-PCS; 2016-11-13)
PROC: 0DB28ZX Excision of Middle Esophagus, Via Natural or Artificial Opening Endoscopic, Diagnostic (ICD-10-PCS; 2016-11-13)
PROC: 0DB38ZX Excision of Lower Esophagus, Via Natural or Artificial Opening Endoscopic, Diagnostic (ICD-10-PCS; principal; 2016-11-13 10:30)
DX: J69.0 Pneumonitis due to inhalation of food and vomit (principal); G82.54 Quadriplegia, C5-C7 incomplete; J91.8 Pleural effusion in other conditions classified elsewhere; E87.1 Hypo-osmolality and hyponatremia; T83.511A Infection and inflammatory reaction due to indwelling urethral catheter, initial encounter; B37.49 Other urogenital candidiasis; J12.0 Adenoviral pneumonia; G90.1 Familial dysautonomia [Riley-Day]; G89.29 Other chronic pain; G47.00 Insomnia, unspecified; I69.322 Dysarthria following cerebral infarction; F17.210 Nicotine dependence, cigarettes, uncomplicated; K56.41 Fecal impaction; K22.4 Dyskinesia of esophagus; R19.2 Visible peristalsis; K29.70 Gastritis, unspecified, without bleeding